=== PATIENT | female | born 1980 | race Caucasian/White ===

== ENCOUNTER 2021-06-01 01:46 | Emergency (ER) | payer SELFPAY ==
--- NOTE | ~2021-06-01 | XR_ITS ---
EXAMINATION: XR tibia fibula LT 2V DATE: 06/01/2021 02:42 INDICATION: Chronic wound to the left lower leg TECHNIQUE: Anteroposterior and lateral views of the left tibia and fibula were obtained. COMPARISON: None. FINDINGS: Alignment is normal. No fracture. Joint spaces are normal. No cortical erosions or periosteal reactio n. Soft tissue swelling about the anterior and medial distal lower leg. No soft tissue gas or radiopa que foreign bodies. No knee or ankle joint effusions. IMPRESSION: 1. No osseous abnormality. Reviewed, dictated and finalized at location A. IMPRESSION: 1. No osseous abnormality.
[2021-06-01 02:04] VITALS: BP 140/102; PULSE 66; RESP 13; TEMP 36.8; O2SAT 100
[2021-06-01 02:29] VITALS: RESP 14
--- NOTE | 2021-06-01 02:36 | PC.NURSE ---
Spoke with Anya at [facility] Control. She states observe pt and provide supportive care. She will call back in approx 2 hours to check lab results.
[2021-06-01 02:41] LABS: Basophils Percent Auto 0.2 % (0.2-1.2); Hemoglobin 13.2 g/dL (12.0-15.0); Immature Granulocyte Absolute 0.01 K/mm3 (0.00-0.031); Immature Granulocyte Percent A 0.2 % (0-0.5); Lymphocytes Absolute Auto 2.29 K/mm3 (0.9-3.2); Lymphocytes Percent Auto 36.9 % (18.3-44.2); Mean Corpuscular Hemoglobin 28.9 pg (26-34); Mean Corpuscular Volume 87.7 fl (80-100); Mean Platelet Volume 9.5 fl (7.4-10.4); Monocytes Absolute Auto 0.5 K/mm3 (0.1-0.6); Monocytes Percent Auto 8.5 % (2.6-8.5); Neutrophils Absolute Auto 3.4 K/mm3 (1.3-6.7); Neutrophils Percent Auto 54.2 % (45.5-73.1); Platelet Count Result 277 k/mm3 (150-375); Red Blood Count 4.56 M/mm3 (4.2-5.4); Red Cell Distribution Width 13.5 % (11.5-14.5); White Blood Count 6.2 K/mm3 (4.5-10.0)
--- NOTE | 2021-06-01 02:41 | ED.OVERDOSE ---
HPI - Overdose General Chief Complaint: Overdose Stated Complaint: FENTANYL/LT LEG WOUND Time Seen by Provider: 06/01/21 01:56 Source: patient History of Present Illness HPI Narrative: Patient presents with fentanyl ingestion. Reports she was pulled over by the graduation coach so she took approximately 3 pills of fentanyl. She reports she only takes about 10 pills to get high and right now feels well. She does report mild pain on her left leg she has a chronic wound that previously required a skin graft reports that is healing well but is little bit more tender tonight because she bumped it when trying to hide the fentanyl from the police. She denies any fevers, nausea, vomiting. Reports she otherwise feels well she denies any SI. Related Data Home Medications Medication Instructions Recorded Confirmed buprenorphine-naloxone [Suboxone] 1 film BUCCAL DAILY 06/01/21 gabapentin 600 mg PO TID 06/01/21 quetiapine [Seroquel] 100 mg PO HS 06/01/21 sertraline [Zoloft] 100 mg PO DAILY 06/01/21 Allergies Allergy/AdvReac Type Severity Reaction Status Date / Time No Known Allergies Allergy Unknown Unverified 10/28/11 16:48 Review of Systems Review of Systems: CONSTITUTIONAL: Denies fever, chills, or sweats. EYES: Denies visual changes, redness, or discharge. ENT: Denies rhinorrhea, congestion, sore throat, or otalgia. CARDIOVASCULAR: Denies chest pain, palpitations, or edema. RESPIRATORY: Denies cough or dyspnea. GASTROINTESTINAL: Denies abdominal pain, nausea, vomiting, or diarrhea. GENITOURINARY: Denies dysuria or hematuria. SKIN: Denies rash or itching. MUSCULOSKELETAL: Denies back pain, or myalgia. NEUROLOGIC: Denies headache, numbness, dizziness, or weakness. PSYCHIATRIC: Denies anxiety or depression. All systems reviewed & are unremarkable except as noted in HPI and below PMFSH Family History Family History Mother Family history of arthritis Sibling Family history of attention deficit hyperactivity disorder (ADHD) Social History Social History Second hand tobacco smoke exposure: Yes Alcohol intake: never Substance use type: painkillers, methamphetamine and prescription drug Exam Narrative: GENERAL: Well-appearing, well-nourished, and in no acute distress. HEAD: Normocephalic, atraumatic. EYES: PERRLA and EOMI. ENT: Nares clear, no rhinorrhea or epistaxis. Mucous membranes moist. NECK: Supple. No masses. No JVD CHEST: Clear to auscultation. No respiratory distress. No wheezes rales or rhonchi HEART: Regular rate and rhythm. No murmur heard. Normal peripheral pulses. ABDOMEN: Soft, nontender, nondistended, normal active bowel sounds. EXTREMITIES: Normal range of motion. Chronic 2 x 4 cm superficial wound to the anterior aspect of the left lower leg there is surrounding erythema tenderness and edema there is no focal fluctuance or purulent drainage there is moderate tenderness palpation no crepitus to the area. SKIN: Warm, dry, no rash. NEURO: No focal deficits. Alert and oriented x3. PSYCH: Normal mood and affect. Course Reevaluation(s) Reevaluation #1: Patient resting comfortably continues to be without complaints results and plan reviewed with patient. Patient is comfortable outpatient plan. Date: 06/01/21 Time: 05:05 Vital Signs Vital signs: Vital Signs Temperature 36.8 C 06/01/21 02:04 Pulse Rate 66 06/01/21 02:04 Respiratory Rate 13 06/01/21 02:04 Blood Pressure 140/102 H 06/01/21 02:04 Pulse Oximetry 100 06/01/21 02:04 Temperature 36.9 C 06/01/21 05:22 Pulse Rate 65 06/01/21 05:22 Respiratory Rate 14 06/01/21 05:22 Blood Pressure 115/70 06/01/21 05:22 Pulse Oximetry 99 06/01/21 05:22 MDM - Overdose MDM Narrative Medical decision making narrative: H&P as above, vss, pt looks clinically well, exam without toxidrome, labs with a positive UDS and elevat
[2021-06-01 02:50] LABS: Add Urine Microscopic? YES; Appearance Urine Cloudy (Clear); Bacteria Urine Trace /hpf; Bilirubin Urine Negative (Negative); Blood Urine Negative (Negative); Color Urine Yellow (Yellow); Glucose Urine UA Negative (Negative); Ketones Urine Negative (Negative); Leukocyte Esterase Ur Negative LEU/UL (Negative); Mucus Urine Rare /lpf; Nitrate Urine Negative (Negative); Protein Urine Negative (Negative); RBC Urine 21-50 /hpf (0-2); Specific Grav Ur 1.019 (1.001-1.035); Squamous Epithelial Cell Urine Rare /hpf (Few)
[2021-06-01 02:57] LABS: Alanine Aminotransferase 15 U/L (4-35); Albumin Level 4.5 g/dL (3.5-5.1); Alkaline Phosphatase 98 U/L (38-126); Anion Gap 6 mmol/L (8-16); Aspartate Amino Transferase 25 U/L (14-36); Bilirubin,Total 0.4 mg/dL (0.2-1.3); Blood Urea Nitrogen 18 mg/dL (7-17); CRP < 0.5 mg/dL (<1.0); Calcium 9.5 mg/dL (8.4-10.2); Carbon Dioxide 32 mmol/L (22-30); Chloride 98 mmol/L (98-107); Estimated CRCL calculation 87 ml/min; Estimated Glomerular Filt Rate > 60; Glucose 108 mg/dL (65-110); Potassium 4.1 mmol/L (3.4-5.0); Sodium 136 mmol/L (137-145)
[2021-06-01 03:06] LABS: Barbiturate Screen Urine Negative (Negative); Benzodiazepines Screen Urine Positive (Negative)
[2021-06-01 03:14] LABS: Erythrocyte Sedimentation Rate 31 mm/hr (0-20)
[2021-06-01 03:15] LABS: Cannabinoid Screen Urine Negative (Negative); Cocaine Screen Urine Negative (Negative); Methadone Screen Urine Negative (Negative); Opiate Screen Urine Negative (Negative); Phencyclidine Screen Urine Negative (Negative)
[2021-06-01 03:32] LABS: Amphetamine Screen Urine Positive (Negative)
[2021-06-01 03:47] VITALS: BP 124/72; PULSE 57; RESP 15; O2SAT 97
[2021-06-01] MEDS: SODIUM CHLORIDE 0.9% IV 1,000 ML 999 ML IV CONT (03:47)
[2021-06-01 03:49] VITALS: PULSE 63
[2021-06-01 04:38] VITALS: BP 114/68; PULSE 62; RESP 16; O2SAT 98
--- NOTE | 2021-06-01 04:49 | PC.NURSE ---
poison control calls for update on labs and vitals. no new recommendations at this time
[2021-06-01 05:22] VITALS: BP 115/70; PULSE 65; RESP 14; TEMP 36.9; O2SAT 99
== END 2021-06-01 05:23 | disposition home or self-care (01) ==
PROVIDERS: Emergency Provider Emergency Medicine
DX: T40.411A Poisoning by fentanyl or fentanyl analogs, accidental (unintentional), initial encounter (principal); L03.116 Cellulitis of left lower limb; Z77.22 Contact with and (suspected) exposure to environmental tobacco smoke (acute) (chronic)
CPT/HCPCS: 36415; 73140; 73590; 80053; 80307; 81001; 85025; 85652; 86140; 87086; 96360; 99283; J7030

== ENCOUNTER 2021-10-04 18:48 | Emergency (ER) | payer MEDICAID, SELFPAY ==
--- NOTE | 2021-10-04 19:40 | ED.GENADULT ---
HPI - General Adult General Chief complaint: Psychiatric Symptoms Stated complaint: SI/PSYCH Time Seen by Provider: 10/04/21 19:13 History of Present Illness HPI narrative: Patient 41-year-old female who presents the emergency department with chief complaint of suicidal ideation. Patient reports she has history of depression and reports that she has been having suicidal thoughts for the last several weeks. Patient states today she has a plan to jump out of a car run over reports she was hospitalized several months ago. Patient denies any other actual attempt at this time patient reports has not been compliant with her antidepressant. Patient reports symptoms or not improved by anything or they worsened by Related Data Home Medications Medication Instructions Recorded Confirmed buprenorphine 8 mg-naloxone 2 mg 1 film buccal DAILY 06/01/21 sublingual film (Suboxone) gabapentin 600 mg tablet 600 mg PO TID 06/01/21 quetiapine 100 mg tablet (Seroquel) 100 mg PO HS 06/01/21 sertraline 100 mg tablet (Zoloft) 100 mg PO DAILY 06/01/21 Allergies Allergy/AdvReac Type Severity Reaction Status Date / Time No Known Allergies Allergy Unknown Unverified 10/28/11 16:48 Review of Systems Review of Systems: A 10 system review of systems was completed on the patient and is negative except for what is stated in the HPI. Nursing and ancillary documentation was reviewed. [facility] Family History Family History Mother Family history of arthritis Sibling Family history of attention deficit hyperactivity disorder (ADHD) Social History Social History Second hand tobacco smoke exposure: Yes Alcohol intake: never Substance use type: IV drugs Exam Narrative: GENERAL: Well-appearing, well-nourished, and in no acute distress. HEAD: Normocephalic, atraumatic. EYES: PERRLA and EOMI. ENT: Nares clear, no rhinorrhea or epistaxis. Mucous membranes moist. NECK: Supple. CHEST: Clear to auscultation. No respiratory distress. HEART: Regular rate and rhythm. No murmur heard. Normal peripheral pulses. ABDOMEN: Soft, nontender, nondistended, normal active bowel sounds. EXTREMITIES: Normal range of motion. No edema. SKIN: Warm, dry, no rash. NEURO: No focal deficits. Alert and oriented x3. PSYCH: Normal mood and affect. Course Course Emergency Course: Patient is medically cleared for psychiatric evaluation referral transport and admission Vital Signs Vital signs: Vital Signs Temperature 36.4 C 10/04/21 19:50 Pulse Rate 65 10/04/21 19:50 Respiratory Rate 16 10/04/21 19:50 Blood Pressure 127/78 10/04/21 19:50 Pulse Oximetry 100 10/04/21 19:50 Temperature 36.4 C 10/04/21 19:50 Pulse Rate 65 10/04/21 19:50 Respiratory Rate 16 10/04/21 19:50 Blood Pressure 127/78 10/04/21 19:50 Pulse Oximetry 100 10/04/21 19:50 Medical Decision Making Vital Signs Vital Signs: Vital Signs Temperature 36.4 C 10/04/21 19:50 Pulse Rate 65 10/04/21 19:50 Respiratory Rate 16 10/04/21 19:50 Blood Pressure 127/78 10/04/21 19:50 Pulse Oximetry 100 10/04/21 19:50 Temperature 36.4 C 10/04/21 19:50 Pulse Rate 65 10/04/21 19:50 Respiratory Rate 16 10/04/21 19:50 Blood Pressure 127/78 10/04/21 19:50 Pulse Oximetry 100 10/04/21 19:50 Lab Data Result diagrams: 10/04/21 19:28 10/04/21 19:27 Labs: Lab Results 10/04/21 10/04/21 10/04/21 Range/Units 19:10 19:11 19:27 WBC (4.5-10.0) K/mm3 RBC (4.2-5.4) M/mm3 Hgb (12.0-15.0) g/dL Hct (37.0-47.0) % MCV (80-100) fl MCH (26-34) pg MCHC (32-36) g/dl RDW (11.5-14.5) % Plt Count (150-375) k/mm3 MPV (7.4-10.4) fl Immature Gran % (Auto) (0-0.5) % Neut % (Auto) (45.5-73.1) % Lymph % (Auto) (18.3-44.2) %
[2021-10-04 19:44] LABS: Basophils Percent Auto 0.5 % (0.2-1.2); Eosinophils Absolute Auto 0.2 K/mm3 (0-0.3); Eosinophils Percent Auto 2.3 % (0-4.4); Hematocrit 40.8 % (37.0-47.0); Hemoglobin 14.1 g/dL (12.0-15.0); Immature Granulocyte Absolute 0.03 K/mm3 (0.00-0.031); Immature Granulocyte Percent A 0.4 % (0-0.5); Lymphocytes Absolute Auto 2.37 K/mm3 (0.9-3.2); Lymphocytes Percent Auto 31.8 % (18.3-44.2); Mean Corpuscular HGB Conc 34.6 g/dl (32-36); Mean Platelet Volume 9.6 fl (7.4-10.4); Monocytes Absolute Auto 0.5 K/mm3 (0.1-0.6); Monocytes Percent Auto 6.7 % (2.6-8.5); Neutrophils Absolute Auto 4.4 K/mm3 (1.3-6.7); Neutrophils Percent Auto 58.3 % (45.5-73.1); Platelet Count Result 304 k/mm3 (150-375); Red Blood Count 4.86 M/mm3 (4.2-5.4); Red Cell Distribution Width 13.7 % (11.5-14.5); White Blood Count 7.5 K/mm3 (4.5-10.0)
[2021-10-04 19:50] VITALS: BP 127/78; PULSE 65; RESP 16; TEMP 36.4; O2SAT 100
[2021-10-04 20:02] LABS: Appearance Urine Cloudy (Clear); Bilirubin Urine Negative (Negative); Color Urine Yellow (Yellow); Glucose Urine UA Negative (Negative); Ketones Urine Negative (Negative); Leukocyte Esterase Ur 1+ LEU/UL (Negative); Nitrate Urine Negative (Negative); Protein Urine Negative (Negative); Urobilinogen Urine 0.2 mg/dL (<2.0)
[2021-10-04 20:03] LABS: Add Urine Microscopic? YES; Blood Urine Trace (Negative)
[2021-10-04 20:08] LABS: Ethanol < 10 mg/dL (<10)
[2021-10-04 20:21] LABS: Acetaminophen < 10 ug/mL (10-30); Salicylate < 1.0 mg/dL (2-20)
[2021-10-04 20:22] LABS: SARS-CoV-2 RNA PCR Negative
[2021-10-04 20:22] LABS: Alanine Aminotransferase 14 U/L (6-35); Albumin Level 4.4 g/dL (3.5-5.1); Alkaline Phosphatase 74 U/L (38-126); Anion Gap 6 mmol/L (8-16); Aspartate Amino Transferase 21 U/L (14-36); Bilirubin,Total 0.3 mg/dL (0.2-1.3); Blood Urea Nitrogen 13 mg/dL (7-17); Calcium 9.4 mg/dL (8.4-10.2); Carbon Dioxide 29 mmol/L (22-30); Chloride 104 mmol/L (98-107); Estimated CRCL calculation 103 ml/min; Estimated Glomerular Filt Rate > 60; Glucose 98 mg/dL (65-110); Potassium 3.9 mmol/L (3.4-5.0); Sodium 139 mmol/L (137-145)
[2021-10-04 20:28] LABS: Amorphous Sediment Urine Few; Bacteria Urine 3+ /hpf; Mucus Urine Rare /lpf; Squamous Epithelial Cell Urine Many /hpf (Few)
[2021-10-04 20:52] LABS: Thyroid Stimulating Hormone 0.322 uIU/mL (0.465-4.680)
[2021-10-04 20:52] LABS: Amphetamine Screen Urine Negative (Negative); Barbiturate Screen Urine Positive (Negative); Benzodiazepines Screen Urine Negative (Negative); Cannabinoid Screen Urine Negative (Negative); Cocaine Screen Urine Negative (Negative); Methadone Screen Urine Negative (Negative); Opiate Screen Urine Negative (Negative); Phencyclidine Screen Urine Negative (Negative)
--- NOTE | 2021-10-05 00:55 | PC.NURSE ---
Patient food taken out of EMS bay. THis RN asked [place] and she stated it was okay to take food for now and she would let warehouse forklift operator know./
[2021-10-05 04:27] VITALS: BP 128/89; PULSE 78; RESP 18; O2SAT 99
[2021-10-05 04:28] VITALS: BP 128/89; PULSE 78; RESP 18; O2SAT 99
== END 2021-10-05 04:57 ==
PROVIDERS: Emergency Medicine; Emergency Provider Emergency Medicine
DX: R45.851 Suicidal ideations (principal); F32.A Depression, unspecified; Z20.822 Contact with and (suspected) exposure to COVID-19; Z77.22 Contact with and (suspected) exposure to environmental tobacco smoke (acute) (chronic)
CPT/HCPCS: 36415; 80053; 80307; 81001; 81025; 84443; 85025; 99285; C9803; U0003; U0005